=== PATIENT | male | born 1990 | race Caucasian/White ===

== ENCOUNTER 2018-11-28 13:09 | Emergency (ER) | payer OTHER ==
[~2018-11-28] VITALS: Ht 160 cm; Wt 50.7 kg
[2018-11-28 13:09] VITALS: BP 108/74
[2018-11-28] MEDS ORDERED: IBUP1TAB7 PO (13:19)
[2018-11-28] MEDS ORDERED: predniSONE 50 MG TAB PO ONE (13:45)
[2018-11-28] MEDS ORDERED: GABAPENTIN 300 MG CAP PO ONE (13:45)
[2018-11-28] MEDS ORDERED: predniSONE 20 MG TAB PO ONE (13:45)
[2018-11-28] MEDS ORDERED: GABA-843 PO (13:47)
[2018-11-28] MEDS ORDERED: PRED10TA2 PO (13:47)
== END 2018-11-28 13:54 | disposition home or self-care (01) ==
LOC: M ED 13:09
DX: S29.012A Strain of muscle and tendon of back wall of thorax, initial encounter (principal); M54.5 Low back pain; X58.XXXA Exposure to other specified factors, initial encounter; Y92.89 Other specified places as the place of occurrence of the external cause

== ENCOUNTER 2023-10-28 08:53 | Day surgery (SDC) | payer OTHER ==
[~2023-10-28] VITALS: Ht 162.6 cm; Wt 54.1 kg
[~2023-10-28 08:53] MED LIST: GABA-282 PO; IBUP1TAB7 PO; PRED10TA2 PO
[2023-10-28] MEDS ORDERED: LR 1,000 ML IV SCH ×2 (09:15→12:10)
[2023-10-28] MEDS ORDERED: ePHEDrine SULFATE 25 MG/5 ML(5MG/ML) SYRINGE As Ordered ONE (10:59)
[2023-10-28] MEDS ORDERED: ONDANSETRON 4MG 2ML VIAL As Ordered ONE (10:59)
[2023-10-28] MEDS ORDERED: MIDAZOLAM INJ 2MG/2ML VIAL As Ordered ONE (10:59)
[2023-10-28] MEDS ORDERED: PHENYLephrine 500MCG 5ML (100MCG/ML) SYRINGE As Ordered ONE (10:59)
[2023-10-28] MEDS ORDERED: propofoL 200 MG/20 ML VIAL As Ordered ONE (10:59)
[2023-10-28] MEDS ORDERED: fentaNYL 100 MCG/2 ML INJECTION As Ordered ONE (10:59)
[2023-10-28] MEDS ORDERED: LIDOCAINE 2% 100MG/5ML SDV (FOR ANES.) As Ordered ONE (10:59)
[2023-10-28] MEDS ORDERED: SUGAMMADEX SODIUM 500 MG/5 ML VIAL (BRIDION) As Ordered ONE (11:00)
[2023-10-28] MEDS ORDERED: ROCURONIUM BROMIDE 50MG/5ML VIAL As Ordered ONE (11:02)
[2023-10-28] MEDS ORDERED: ACETAMINOPHEN 1000MG 100ML IV BAG As Ordered ONE (11:30)
[2023-10-28] MEDS: EPINEPHrine 1MG/ML INJ 30ML MD-VIAL As Ordered ONE (11:31)
[2023-10-28] MEDS: METHYLENE BLUE 0.5% (5MG/ML) 10 ML AMP (PROVAYBLUE) As Ordered ONE (11:31)
[2023-10-28] MEDS: SODIUM CHLORIDE 0.9% NASAL GEL 15GM (AYR) As Ordered ONE (12:05)
[2023-10-28] MEDS: LIDOCAINE W/EPINEPHRINE 1% 20ML VIAL As Ordered ONE (12:05)
[2023-10-28] MEDS ORDERED: HYDROMORPHONE HCL 0.5 MG/ 0.5 ML SYRINGE IV PRN (12:10)
[2023-10-28] MEDS ORDERED: fentaNYL 100 MCG/2 ML INJECTION IV PRN (12:10)
[2023-10-28] MEDS: oxyCODONE 5MG TAB PO PRN (13:04)
[2023-10-28] MEDS: ONDANSETRON 4MG 2ML VIAL IV PRN (13:05)
[2023-10-28] MEDS: METOCLOPRAMIDE INJ 10MG/2ML VIAL IV PRN (13:26)
[2023-10-28 13:35] VITALS: BP 121/88; TEMP 97.7; O2SAT 98
== END 2023-10-28 14:15 | disposition home or self-care (01) ==
LOC: M SDC 08:53
PROVIDERS: ATTEND Otolaryngology
DX: J34.2 Deviated nasal septum (principal); J34.89 Other specified disorders of nose and nasal sinuses; R09.81 Nasal congestion; Z87.891 Personal history of nicotine dependence
CPT/HCPCS: 30520; 88300; J0131; J0171; J1100; J2250; J2371; J2405; J2765; J3010; Q9968

== ENCOUNTER → 2024-02-17 | Outpatient (CLI) | payer OTHER | LOC: M RAD 15:55 | PROVIDERS: ATTEND Physician Assistant | DX: R19.07 Generalized intra-abdominal and pelvic swelling, mass and lump (principal) ==

== ENCOUNTER 2024-04-06 08:50 | Day surgery (SDC) | payer OTHER ==
[~2024-04-06] VITALS: Ht 160 cm; Wt 54.0 kg
[~2024-04-06 08:50] MED LIST changes: +ACETAMINOPHEN 1000MG 100ML IV BAG As Ordered ONE; +LIDOCAINE 2% 100MG/5ML SDV (FOR ANES.) As Ordered ONE; +MIDAZOLAM INJ 2MG/2ML VIAL As Ordered ONE; +ONDANSETRON 4MG 2ML VIAL As Ordered ONE; +fentaNYL 100 MCG/2 ML INJECTION As Ordered ONE; +propofoL 200 MG/20 ML VIAL As Ordered ONE
[2024-04-06] MEDS: ceFAZolin SOD 2 GM in IV 1 EA IV ONE (10:35)
[2024-04-06] MEDS ORDERED: KETOROLAC 60MG 2ML VIAL As Ordered ONE (10:42)
[2024-04-06] MEDS: BACITRACIN OINTMENT 30GM TUBE As Ordered ONE (11:09)
[2024-04-06] MEDS ORDERED: PERCOCET 5MG/325MG TAB PO PRN (11:45)
[2024-04-06] MEDS ORDERED: CEPH500C PO (11:58)
[2024-04-06] MEDS ORDERED: OXYC1TAB23 PO (11:58)
[2024-04-06 12:10] VITALS: BP 106/62; TEMP 96.7; O2SAT 100
== END 2024-04-06 12:43 | disposition home or self-care (01) ==
LOC: M SDC 08:50
PROVIDERS: ATTEND Urology
DX: L72.0 Epidermal cyst (principal); K21.9 Gastro-esophageal reflux disease without esophagitis
CPT/HCPCS: 11423; 88307; J0131; J0665; J0690; J1100; J1885; J2250; J2405; J3010